=== PATIENT | female | born 1990 | race Caucasian/White ===

== ENCOUNTER 2019-05-24 02:39 | Emergency (ER) | payer SELFPAY ==
[~2019-05-24] VITALS: Ht 167.6 cm; Wt 76.8 kg
[2019-05-24 02:45] VITALS: Ht 167.6 cm; Wt 76.8 kg
[2019-05-24] MEDS ORDERED: TIROSINT75 MCG PO (02:46)
[2019-05-24] MEDS ORDERED: ULTRAM50 MG PO (04:59)
[2019-05-24 05:14] VITALS: BP 136/97
== END 2019-05-24 05:05 | disposition home or self-care (01) ==
LOC: D.ER 02:39
DX: R68.84 Jaw pain (principal); S09.93XA Unspecified injury of face, initial encounter; W21.07XA Struck by softball, initial encounter; Y93.64 Activity, baseball; Y92.89 Other specified places as the place of occurrence of the external cause

== ENCOUNTER → 2019-08-26 14:53 | Outpatient (CLI) | payer OTHER ==
[2019-05-24 02:45] VITALS: BMI 27.3
[~2019-08-26 14:53] MED LIST: NAPROSYN500 MG PO; TIROSINT75 MCG PO; ULTRAM50 MG PO
== END | disposition home or self-care (01) ==
LOC: D.US 14:53
PROVIDERS: ATTEND Nurse Practitioner
DX: E04.1 Nontoxic single thyroid nodule (principal)

== ENCOUNTER 2019-09-05 12:38 | Emergency (ER) | payer OTHER ==
[~2019-09-05] VITALS: Ht 160 cm; Wt 79.5 kg
[~2019-09-05 12:38] MED LIST changes: -NAPROSYN500 MG PO
[2019-09-05 13:08] LABS: BASOPHILS 0.7 % (0-2); EOSINOPHILS 3.2 % (0-7); HEMATOCRIT 43.3 % (36.0-48.0); HEMOGLOBIN 14.7 g/dL (12-16); IMMATURE GRANULOCYTES 0.3 % (0-5); LYMPHOCYTES 41.7 % (15-50); MCHC 33.9 g/dL (31.0-37.0); MCV 85.4 fL (80.0-100.0); MEAN PLATELET VOLUME 10.4 fL (7.4-10.4); MONOCYTES 7.1 % (2-11); PLATELET COUNT 275 10x3/uL (130-400); RBC 5.07 10x6/uL (4.00-5.40); RDW 13.1 % (11.5-14.5); WBC 6.9 10x3/uL (4.8-10.8)
[2019-09-05 13:12] LABS: APTT 35.4 SECONDS (22.8-39.4); INR 0.95 (0.85-1.17); PROTIME 12.2 SECONDS (11.6-15.0)
[2019-09-05 13:18] LABS: ALBUMIN 4.1 g/dL (3.4-5.0); ALKALINE PHOSPHATASE 72 U/L (46-116); ALT (SGPT) 55 U/L (10-68); BILIRUBIN - TOTAL 0.65 mg/dL (0.2-1.3); CALC OSMOLALITY 279 mosm/kg (275-300); CALCIUM 9.3 mg/dL (8.5-10.1); CHLORIDE - SERUM 102 mmol/L (98-107); CREATININE - SERUM 0.8 mg/dL (0.6-1.3); GLUCOSE 112 mg/dL (74-106); POTASSIUM - SERUM 3.8 mmol/L (3.5-5.1); PROTEIN - SERUM 7.6 g/dL (6.4-8.2); SODIUM 141 mmol/L (136-145); UREA NITROGEN 7 mg/dL (7-18); eGFR NON AFRICAN AMERICAN 89 mL/min (90-120)
[2019-09-05 13:25] LABS: CKMB 0.7 U/L (0.0-3.6); CREATINE KINASE 51 UL (21-215); MAGNESIUM - SERUM 1.7 mg/dL (1.8-2.4); TROPONIN-I < 0.017 ng/mL (0.000-0.060)
[2019-09-05 14:01] VITALS: Ht 160 cm; Wt 79.5 kg
[2019-09-05] MEDS ORDERED: NAPROSYN500 MG PO (14:34)
[2019-09-05 15:07] VITALS: BP 132/84
== END 2019-09-05 15:08 | disposition home or self-care (01) ==
LOC: D.ER 12:38
PROVIDERS: Family Medicine
DX: R07.9 Chest pain, unspecified (principal); I10 Essential (primary) hypertension